=== PATIENT | male | born 1950 | race Caucasian/White ===

== ENCOUNTER 2017-02-17 18:23 | Emergency (ER) | payer BC ==
--- NOTE | 2017-02-17 20:19 | ED ---
Complaint/Male - History of Current Complaint Chief Complaint: EDUrogenitalProblems Time Seen by Provider: 02/17/17 20:13 - Allergies/Home Medications Allergies/Adverse Reactions: Allergies Allergy/AdvReac Type Severity Reaction Status Date / Time Penicillin G Allergy Hives Verified 02/17/17 18:39 PMH/Surg Hx/FS Hx/Imm Hx Infectious Disease History: No Infectious Disease History: Denies: Traveled Outside the [place] in Last 30 Days Physical Exam Vital Signs On Initial Exam: Initial Vitals Temp Pulse Resp BP Pulse Ox 96.7 F 76 20 170/87 98 02/17/17 18:34 02/17/17 18:34 02/17/17 18:34 02/17/17 18:34 02/17/17 18:34 Diagnostics - Vital Signs Vital Signs Temp Pulse Resp BP Pulse Ox 02/17/17 18:37 97.2 F 86 20 170/87 100 02/17/17 18:34 96.7 F 76 20 170/87 98 - Laboratory Lab Statement: Any lab studies that have been ordered have been reviewed, and results considered in the medical decision making process.
[2017-02-17 20:49] VITALS: BP 132/78
--- NOTE | 2017-02-18 05:05 | ED ---
John Peña Benjamin, scribed for Sammy Black MD on 02/17/17 at 2026 . GI/ HPI - HPI Summary HPI Summary: 66yo male c/o having difficulty urinating. Pt has a urinary catheter removed today. Pt is scheduled to see Dr. Juarez, his urologist tomorrow. Pt has hx of Prostate issues. - History of Current Complaint Chief Complaint: EDUrogenitalProblems Time Seen by Provider: 02/17/17 20:13 Stated Complaint: UNABLE TO URINATE Hx Obtained From: Patient Onset/Duration: Started Hours Ago, Still Present Timing: Constant Severity: Moderate Current Severity: Moderate Pain Intensity: 9 Location of Pain: Groin Additional Locations for Males: Penis Pain Characteristics: Sharp Associated Signs and Symptoms: Positive: Negative - Allergy/Home Medications Allergies/Adverse Reactions: Allergies Allergy/AdvReac Type Severity Reaction Status Date / Time Penicillin G Allergy Hives Verified 02/17/17 18:39 PMH/Surg Hx/FS Hx/Imm Hx History: Reports: Other Problems/Disorders - prostate issues Infectious Disease History: No Infectious Disease History: Denies: Traveled Outside the [place] in Last 30 Days - Family History Known Family History: Positive: Hypertension Negative: Cardiac Disease, Diabetes - Social History Occupation: Employed Full-time Lives: With Family Alcohol Use: Occasionally Hx Substance Use: No Substance Use Type: Reports: None Hx Tobacco Use: No Smoking Status (MU): Never Smoked Tobacco Review of Systems Constitutional: Negative Eyes: Negative ENT: Negative Cardiovascular: Negative Respiratory: Negative Gastrointestinal: Negative Positive: dysuria, other - anuria Musculoskeletal: Negative Skin: Negative Neurological: Negative Psychological: Normal All Other Systems Reviewed And Are Negative: Yes Physical Exam Triage Information Reviewed: Yes Vital Signs On Initial Exam: Initial Vitals Temp Pulse Resp BP Pulse Ox 96.7 F 76 20 170/87 98 02/17/17 18:34 02/17/17 18:34 02/17/17 18:34 02/17/17 18:34 02/17/17 18:34 Vital Signs Reviewed: Yes Appearance: Positive: Well-Appearing, Pain Distress - mild discomfort Skin: Positive: Warm Head/Face: Positive: Normal Head/Face Inspection Eyes: Positive: ANITRA Respiratory/Lung Sounds: Positive: Breath Sounds Present Cardiovascular: Positive: RRR Abdomen Description: Positive: Soft, Other: - marked bladder distension Bowel Sounds: Positive: Present Diagnostics - Vital Signs Vital Signs Temp Pulse Resp BP Pulse Ox 02/17/17 18:37 97.2 F 86 20 170/87 100 02/17/17 18:34 96.7 F 76 20 170/87 98 - Laboratory Lab Statement: Any lab studies that have been ordered have been reviewed, and results considered in the medical decision making process. Re-Evaluation - Re-Evaluation First Eval Change: Improved - peres placed, 1500ml clear urine, pt has appt to f/u with gu later today GIGU Course/Dx - Diagnoses Provider Diagnoses: Urinary retention Discharge - Discharge Plan Condition: Stable Disposition: HOME Patient Education Materials: Urinary Retention in Men (ED) Referrals: Alin Juarez MD [Medical Doctor] - 1 Day The documentation as recorded by the John ricketts Benjamin accurately reflects the service I personally performed and the decisions made by me, Sammy Black MD.
== END 2017-02-17 20:47 | disposition home or self-care (01) ==
LOC: ED 18:23
DX: R33.9 Retention of urine, unspecified (principal); R30.0 Dysuria
CPT/HCPCS: 99282

== ENCOUNTER 2017-04-11 06:57 | Observation (INO) | payer BC ==
--- NOTE | 2017-04-08 10:00 | HP ---
CC: Sandra Cavanaugh PA. DATE OF ADMISSION: 04/11/17 DATE OF : [birth year] - AGE: 66 years, male. ADMITTING DIAGNOSES: 1. Benign prostatic hypertrophy. 2. Urinary retention. PLANNED PROCEDURE: Transurethral resection of prostate. SURGEON: Dr. Juarez. HISTORY OF PRESENT ILLNESS: Perez Laird is a 66-year-old gentleman who had developed acute uri nary retention after hernia surgery in January 2017. He has been on Flomax 0.8 mg as well as Avodart 0. 5 mg, and has failed multiple voiding trials in the last three months. Cystoscopy done in the [facility] revealed a moderately enlarged obstructing prostate. After the most recent voiding trial had fail ed, he was given the option of trying intermittent self-catheterization but would like to proceed wi transurethral resection of prostate in an effort to get rid of the Decker catheter. PAST MEDICAL HISTORY: Significant for 1. Gastroesophageal reflux. 2. Hypothyroidism. 3. History of left renal cell carcinoma requiring a partial nephrectomy in 2010. PAST SURGICAL HISTORY: Significant for 1. Right total knee replacement. 2. Bilateral total hip replacement. 3. Total thyroidectomy. 4. Lumbar discectomy. 5. Left partial nephrectomy. 6. Right inguinal hernia repair. MEDICATIONS ON ADMISSION: 1. Flomax 0.8 mg once a day. 2. Avodart 0.5 mg once a day. 3. Synthroid 175 mcg daily. 4. Protonix 40 mg daily. 5. Ropinirole 3 mg daily. ALLERGIES: 1. PENICILLIN (hives). 2. ULTRAM. SMOKING HISTORY: He's a non-smoker. REVIEW OF SYSTEMS: He denies any chest pain or shortness of breath. There's no history of diabetes mellitus, or any other major systemic illness. PHYSICAL EXAMINATION GENERAL: Exam reveals a pleasant, healthy-appearing, middle-aged gentleman. VITAL SIGNS: Blood pressure 160/92, pulse 53 per minute, oxygen saturation 98% on room air. CARDIOVASCULAR: Regular rate and rhythm, S1, S2. LUNGS: Clear bilaterally. ABDOMEN: Soft, without masses. A Decker catheter is in place, draining clear urine. IMPRESSION: A 66-year-old gentleman with prostate enlargement who's on maximum medical therapy in t he form of alpha blockers and Avodart, and who has failed multiple voiding trials. I've discussed t he procedure of transurethral resection of prostate in detail, including possible risks of bleeding, infection, persistent retention, erectile and ejaculatory dysfunction, and urinary incontinence. Priyank armando appears to understand, and wishes to proceed as planned. PLAN: Transurethral resection of prostate. [id number]/[facility] #: [id number]
[~2017-04-11 06:57] MED LIST: Buffered Lidocaine 0.9% SYRIN* 5 ML/SYR SYRINGE INTRADERM ONE; Famotidine IV* 10 MG/ML 2 ML (20 mg) IV ONE; Metoclopramide TAB* 10 MG PO ONE
[2017-04-11] MEDS ORDERED: Metoclopramide TAB* 10 MG ONE (07:05)
[2017-04-11] MEDS ORDERED: Famotidine IV* 10 MG/ML 2 ML (20 mg) ONE (07:05)
[2017-04-11] MEDS ORDERED: Levofloxacin 500 MG IVPREMIX(* 500 MG/100 ML BAG IVPB ONE (07:05)
[2017-04-11] MEDS ORDERED: KETAMINE HCL* 50 MG/ML 10 ML VIAL ONE (09:09)
[2017-04-11] MEDS ORDERED: Dexamethasone IV* 4 MG/ML 1 ML (4 MG) ONE (09:09)
[2017-04-11] MEDS ORDERED: Propofol* 10 MG/ML 20 ML BTL IV PUSH ONE ×3 (09:09→10:40)
[2017-04-11] MEDS ORDERED: fentaNYL* 50 MCG/ML 2 ML VIAL (100 MCG VIAL) ONE (09:09)
[2017-04-11] MEDS ORDERED: Ondansetron INJ* 2 MG/ML VIAL ONE (09:09)
[2017-04-11] MEDS ORDERED: Ketorolac INJ* 30 MG/ML 1 ML VIAL ONE (09:09)
[2017-04-11] MEDS ORDERED: Lidocaine 2% PF * 5 ML VIAL ONE (09:09)
[2017-04-11] MEDS ORDERED: Midazolam* 1 MG/ML 5 ML VIAL (5 MG) ONE (09:10)
[2017-04-11] MEDS ORDERED: Furosemide IV* 10 MG/ML 2 ML VIAL (20 MG) ONE (10:12)
[2017-04-11] MEDS ORDERED: Ondansetron INJ* 2 MG/ML VIAL IV PRN (11:22)
[2017-04-11] MEDS ORDERED: fentaNYL* 50 MCG/ML 2 ML VIAL (100 MCG VIAL) IV PRN (11:22)
[2017-04-11] MEDS ORDERED: Acetaminophen TAB* 325 MG PO PRN (13:31)
[2017-04-11] MEDS: Docusate CAP* 100 MG PO SCH ×2 (15:03→20:42)
[2017-04-11] MEDS: oxyCODONE/Acetamin 5/325 MG* TAB PO PRN (19:33)
[2017-04-11] MEDS ORDERED: Omeprazole CAP* 20 MG PO SCH (21:00)
[2017-04-11] MEDS ORDERED: rOPINIRole TAB* 1 MG PO SCH (21:00)
[2017-04-12] MEDS: oxyCODONE/Acetamin 5/325 MG* TAB PO PRN (01:37)
--- NOTE | 2017-04-12 03:40 | OP ---
CC: Dr. Jose Enrique Padron * DATE OF OPERATION: 04/11/17 - ROOM #[id number] DATE OF : 54 SURGEON: Alin Juarez MD ANESTHESIOLOGIST: Dr. Browning. ANESTHESIA: Spinal. PRE-OP DIAGNOSES: 1. Benign prostatic enlargement. 2. Urinary retention. POST-OP DIAGNOSES: 1. Benign prostatic enlargement. 2. Urinary retention. OPERATIVE PROCEDURES: 1. Transurethral resection of prostate. 2. Transurethral incision of bladder neck. COMPLICATIONS: None. ESTIMATED BLOOD LOSS: Approximately 50 mL. CATHETERS: A 24-Ukrainian Decker. SPECIMEN: Prostate chips. INDICATIONS: Perez Laird is a 66-year-old gentleman with persistent urinary retention who has failed multiple voiding trials in spite of being on alpha blockers and Avodart. DESCRIPTION OF PROCEDURE: After induction of spinal anesthesia, patient was placed in dorsal lithotomy position. Sequential compression devices were in place and functioning. Initial cystoscopy revealed a normal-appearing urethra, a moderately large obstructing prostate, and a mildly trabeculated but otherwise normal bladder. The resectoscope was introduced and transurethral resection of the prostate was carried out from the bladder neck down to the veru, the floor of the prostate was first resected followed by the lateral lobe tissue and then the anterior tissue. Next, using a right-angle knife electrode transurethral incision of the bladder neck was carried out at the 5 and 7 o'clock positions in an effort to reduce any postoperative bladder neck contracture. The resected tissue was removed from the bladder using the Ellik evacuator and hemostasis was secured using the coagulating current. A 24-Ukrainian Decker was placed without difficulty. The patient tolerated the procedure satisfactorily and was transferred back to the recovery area in stable condition. [id number]/[facility] #: [id number] [facility]
[2017-04-12] MEDS ORDERED: Levothyroxine TAB* 175 MCG TAB PO SCH (06:00)
[2017-04-12 08:11] VITALS: BP 134/73
[2017-04-12] MEDS: Docusate CAP* 100 MG PO SCH (08:38)
[2017-04-12] MEDS ORDERED: Levofloxacin 500 MG IVPREMIX(* 500 MG/100 ML BAG IVPB ONE (09:00)
--- NOTE | 2017-04-14 09:59 | DS ---
CC: Dr. Jose Enrique Padron * DATE OF ADMISSION: 04/11/2017. DATE OF DISCHARGE: 04/12/2017. AGE: 66-year-old male. ADMITTING DIAGNOSES: 1. Prostate enlargement. 2. Urinary retention. DISCHARGE DIAGNOSES: 1. Prostate enlargement. 2. Urinary retention. SURGICAL PROCEDURE ON THIS ADMISSION: Transurethral resection of prostate. SURGEON: Dr. Juarez. ADMITTING HISTORY: Perez Laird is a 66-year-old gentleman who has had urinary retention for the last several months. He has been on medical therapy, including Flomax and Avodart, and in spite of this has failed multiple voiding trials. He is now being brought in for transurethral resection of prostate. For details, please see admitting history and physical dictated prior to admission. HOSPITAL COURSE: On April 11, Mr. Laird underwent transurethral resection of prostate. Surgery was smooth and uneventful. He was monitored overnight and was evaluated in the morning on April 12. The Decker catheter was draining clear urine and he was discharged with a follow-up in my office as per protocol. [id number]/[facility] #: [id number] [facility]
== END 2017-04-12 10:35 | disposition home or self-care (01) ==
LOC: OR 06:57 → SSU 13:10
PROVIDERS: ADMIT Urology; ATTEND Urology
DX: N40.1 Benign prostatic hyperplasia with lower urinary tract symptoms (principal); R33.8 Other retention of urine; E03.9 Hypothyroidism, unspecified; K21.9 Gastro-esophageal reflux disease without esophagitis; Z85.528 Personal history of other malignant neoplasm of kidney
CPT/HCPCS: 88305; A9270-GY; G0378; J1100; J1580; J1885; J1940; J1956; J2250; J2405; J2704; J3010